=== PATIENT | female | born 1965 | race Caucasian/White ===

== ENCOUNTER 2017-04-24 14:54 | Emergency (ER) | payer MEDICAID, MEDICARE ==
--- NOTE | 2017-04-28 09:34 | ER ---
DATE SEEN: 04/24/2017 The patient was seen at 1526 hours. HISTORY OF PRESENT ILLNESS: The patient is a pleasant 52-year-old woman who smokes, is edentulous, otherwise relatively healthy, had onset yesterday of ingrown hair on the face, she pulled it 3 days ago. She has progressive increase in swelling and tenderness in the left side of the face. She denies neck stiffness, compromised vision, difficulty breathing, sore throat, or coughing. No history of trauma. REVIEW OF SYSTEMS: Negative except as noted above. CURRENT MEDICATIONS: None. SOCIAL HISTORY: Smokes half a pack to a pack of cigarettes per day for many years. PHYSICAL EXAMINATION: VITAL SIGNS: Blood pressure 142/81, heart rate 97, respirations 16, oxygen saturation 97%. The patient's BMI is 20.4 kg/m2. GENERAL: The patient is asthenic, has [place]'s feet appearance of somebody who is a smoker with decreased subcutaneous fat in her face. Features of older skin. HEENT: TMs normal appearance. Pharynx without abnormality with no teeth noted. No bruits in neck. Her face is abnormal. She has erythema of left upper lip and moderate tenderness. She has mild induration in the left maxillary subcutaneous tissue. Induration approximately 4 cm in diameter. Mild erythema, moderately tender. No compromise of lids. There is a slight decrease in lid opening in the left compared to the right. The EOMs normal. Pharynx without abnormality. Uvula is midline. Gag in place. NECK: Supple. No thyromegaly or mass in neck. No cervical adenopathy. LUNGS: Clear without rales, rhonchi, or wheezes. HEART: S1, S2. No murmur. ABDOMEN: Soft. No guarding. No abdominal discomfort. Dermis is otherwise negative except for the changes caused by smoking. ASSESSMENT: Cellulitis, erythema, recurrent erysipelas. PLAN: Treat with Augmentin 875 mg b.i.d., 20 tablets. Follow up with doctor in 24 to 48 hours if markedly worse or if has increased neck stiffness or increased pain. Otherwise, follow up with doctor in 7 to 10 days. /[id number] DANIAL/CEDRIC
== END 2017-04-24 16:21 | disposition home or self-care (01) ==
LOC: FB.ED 14:54
DX: L03.211 Cellulitis of face (principal); A46 Erysipelas; L53.9 Erythematous condition, unspecified
CPT/HCPCS: 99283